=== PATIENT | male | born 1965 | race Hispanic/Latino ===

== ENCOUNTER → 2020-12-02 | Outpatient (CLI) | payer OTHER ==
[~2020-12-02] MED LIST: Z.0.MULTIVITAMINS1 E
== END ==
LOC: MRI 07:02
PROVIDERS: ATTEND Physician Assistant
DX: M25.561 Pain in right knee (principal)

== ENCOUNTER → 2021-01-10 | Day surgery (SDC) | payer OTHER ==
[2021-01-06 11:35] LABS: ANION GAP 10.8 mmol/L (8-16); BLOOD UREA NITROGEN 11 mg/dL (7-26); BUN/CREATININE RATIO 14 (6-25); CALCIUM 9.1 mg/dL (8.4-10.2); CARBON DIOXIDE 26 mmol/L (22-29); CHLORIDE 110 mmol/L (98-107); CREATININE, SERUM 0.79 mg/dL (0.72-1.25); EST GLOMERULAR FILTRATION RATE > 60 ML/MIN (60-); GLUCOSE 100 mg/dL (74-118); POTASSIUM 3.8 mmol/L (3.5-5.1); SODIUM 143 mmol/L (136-145)
[~2021-01-10] MED LIST changes: +ACETAMINOPHEN/CODEINE 300MG - 30MG TAB ONE; +CEFAZOLIN SOD 1 GM/NS 50ML 50 ML IV ONE; +DEXAMETHASONE SOD PHOS INJ 4 MG/ML VIAL ONE; +EPHEDRINE SULFATE INJ 50 MG/ML VIAL ONE; +FENTANYL CITRATE/PF 100MCG/2 ML INJ ONE; +LIDOCAINE HCL 2% JELLY 5 ML TUBE ONE; +LISINOPRIL-HCT1 EACH PO; +MIDAZOLAM HCL 2 MG/2 ML VIAL ONE; +OMEPRAZOLE20 M1 PO; +ONDANSETRON HCL INJ 2MG/ML 2ML 2 MG/ML VIAL ONE; +POVIDONE IODINE 0.05% 0.05 % ML PO ONE; +PROPOFOL IV EMULSION 10 MG/ML 20 ML VIAL ONE; +SEVOFLURANE INHAL SOLN 250 ML PEN BTL ONE
[2021-01-10 08:35] VITALS: BP 133/86
== END | disposition home or self-care (01) ==
LOC: OR 06:31
PROVIDERS: ATTEND Specialist
DX: S83.231A Complex tear of medial meniscus, current injury, right knee, initial encounter (principal); I10 Essential (primary) hypertension; K21.9 Gastro-esophageal reflux disease without esophagitis; G47.33 Obstructive sleep apnea (adult) (pediatric); Z01.810 Encounter for preprocedural cardiovascular examination; Z01.812 Encounter for preprocedural laboratory examination; Z20.822 Contact with and (suspected) exposure to COVID-19
CPT/HCPCS: 29881; 36415; 80048; 93005; J0690; J1100; J2001; J2405; J2704; U0002; J2250; J3010

== ENCOUNTER 2021-02-04 07:55 | Outpatient (RCR) | payer OTHER ==
[~2021-02-04 07:55] MED LIST changes: -ACETAMINOPHEN/CODEINE 300MG - 30MG TAB ONE; -CEFAZOLIN SOD 1 GM/NS 50ML 50 ML IV ONE; -DEXAMETHASONE SOD PHOS INJ 4 MG/ML VIAL ONE; -EPHEDRINE SULFATE INJ 50 MG/ML VIAL ONE; -FENTANYL CITRATE/PF 100MCG/2 ML INJ ONE; -LIDOCAINE HCL 2% JELLY 5 ML TUBE ONE; -MIDAZOLAM HCL 2 MG/2 ML VIAL ONE; -ONDANSETRON HCL INJ 2MG/ML 2ML 2 MG/ML VIAL ONE; -POVIDONE IODINE 0.05% 0.05 % ML PO ONE; -PROPOFOL IV EMULSION 10 MG/ML 20 ML VIAL ONE; -SEVOFLURANE INHAL SOLN 250 ML PEN BTL ONE
== END 2021-02-23 ==
LOC: PT 07:55
PROVIDERS: ATTEND Specialist
DX: S83.231D Complex tear of medial meniscus, current injury, right knee, subsequent encounter (principal); Z47.89 Encounter for other orthopedic aftercare

== ENCOUNTER 2022-01-07 21:02 | Emergency (ER) | payer OTHER ==
[~2022-01-07] VITALS: Ht 170.2 cm; Wt 93.0 kg
[2022-01-07] MEDS ORDERED: SODIUM CHLORIDE 0.9% 1000ML 1,000 ML IV STA (21:16)
[2022-01-07 21:58] LABS: BASOPHILS % 0.3 % (0.0-1.0); EOSINOPHILS # (AUTO) 0.1 (0.0-0.4); EOSINOPHILS % 0.7 % (0.0-6.0); HEMATOCRIT 33.2 % (38.2-49.6); HEMOGLOBIN 11.2 g/dL (14.0-18.0); LYMPHOCYTES # (AUTO) 2.7 (1.0-3.2); LYMPHOCYTES % 27.5 % (18.0-39.1); MEAN CORPUSCULAR HEMOGLOBIN 30.1 pg (28-32); MEAN CORPUSCULAR HGB CONC 33.7 g/dL (31-35); MEAN CORPUSCULAR VOLUME 89.2 fL (81-99); MONOCYTES # (AUTO) 1.1 (0.2-0.8); MONOCYTES % 10.8 % (4.4-11.3); NEUTROPHILS # (AUTO) 5.9 (2.1-6.9); NEUTROPHILS % 60.3 % (38.7-80.0); PLATELET COUNT 241 x10e3/uL (140-360); RED BLOOD COUNT 3.72 x10e6/uL (4.3-5.7); RED CELL DISTRIBUTION WIDTH 12.8 % (11.7-14.4)
[2022-01-07 22:22] LABS: ALBUMIN/GLOBULIN RATIO 1.6 (0.8-2.0); ANION GAP 10.5 mmol/L (8-16); CALCIUM 8.5 mg/dL (8.4-10.2); CREATININE, SERUM 0.8 mg/dL (0.72-1.25); POTASSIUM 3.5 mmol/L (3.5-5.1)
[2022-01-07] MEDS ORDERED: SODIUM CHLORIDE 0.9% 100 ML ONE (23:11)
[2022-01-07] MEDS ORDERED: IOPAMIDOL 370 MG/ML 100 ML INFUS..BTL INJ ONE (23:11)
[2022-01-08] MEDS ORDERED: OMEPRAZOLE40 MG PO (00:08)
[2022-01-08 00:39] VITALS: BP 114/82
== END 2022-01-08 00:37 | disposition home or self-care (01) ==
LOC: ER 21:11
DX: R10.84 Generalized abdominal pain (principal); K92.1 Melena; R19.7 Diarrhea, unspecified; I10 Essential (primary) hypertension
CPT/HCPCS: 36415; 74174; 80053; 83690; 85025; 99284; C9113; J7030; J7050; Q9967

== ENCOUNTER 2024-03-16 11:01 | Emergency (ER) | payer OTHER ==
[~2024-03-16] VITALS: Ht 170.2 cm; Wt 121.1 kg
[~2024-03-16 11:01] MED LIST changes: +OMEPRAZOLE40 MG PO
[2024-03-16 11:23] VITALS: TEMP 98
[2024-03-16] MEDS: SODIUM CHLORIDE 0.9% 1000ML 1,000 ML IV STA (11:51)
[2024-03-16] MEDS: ONDANSETRON HCL INJ 2MG/ML 2ML 2 MG/ML VIAL IV STA (11:51)
[2024-03-16] MEDS: FAMOTIDINE 20 MG/2 ML VIAL IV STA (11:51)
[2024-03-16 11:53] LABS: BASOPHILS # (AUTO) 0.1 (0.0-0.1); BASOPHILS % 0.6 % (0.0-1.0); EOSINOPHILS % 0.3 % (0.0-6.0); HEMATOCRIT 41.9 % (38.2-49.6); HEMOGLOBIN 14.4 g/dL (14.0-18.0); LYMPHOCYTES # (AUTO) 1.6 (1.0-3.2); LYMPHOCYTES % 15.3 % (18.0-39.1); MEAN CORPUSCULAR HEMOGLOBIN 29.2 pg (28-32); MEAN CORPUSCULAR HGB CONC 34.4 g/dL (31-35); MONOCYTES # (AUTO) 0.7 (0.2-0.8); MONOCYTES % 6.2 % (4.4-11.3); NEUTROPHILS # (AUTO) 8.1 (2.1-6.9); PLATELET COUNT 226 x10e3/uL (140-360); RED BLOOD COUNT 4.93 x10e6/uL (4.3-5.7); RED CELL DISTRIBUTION WIDTH 12.5 % (11.7-14.4); WHITE BLOOD COUNT 10.49 x10e3/uL (4.8-10.8)
[2024-03-16 12:05] LABS: INR 0.98; PARTIAL THROMBOPLASTIN TIME 27.8 seconds (23.8-35.5); PROTHROMBIN TIME 13.7 seconds (11.9-14.5)
[2024-03-16 12:13] LABS: INFLUENZAE A&B ANTIGEN (RAPID) NEGATIVE (NEGATIVE); RESPIRATORY SYNC. VIRUS NEGATIVE (NEGATIVE)
[2024-03-16 12:15] LABS: ALANINE AMINOTRANSFERASE 71 IU/L (0-55); ALBUMIN 4.3 g/dL (3.5-5.0); ALBUMIN/GLOBULIN RATIO 1.4 (0.8-2.0); ALKALINE PHOSPHATASE 62 IU/L (40-150); ANION GAP 20.8 mmol/L (8-16); BILIRUBIN,TOTAL 0.6 mg/dL (0.2-1.2); BLOOD UREA NITROGEN 12 mg/dL (7-26); BUN/CREATININE RATIO 16 (6-25); CALCIUM 9.4 mg/dL (8.4-10.2); CARBON DIOXIDE 17 mmol/L (22-29); CHLORIDE 108 mmol/L (98-107); CREATINE KINASE 101 IU/L (30-200); CREATININE, SERUM 0.75 mg/dL (0.72-1.25); EST GLOMERULAR FILTRATION RATE 106 ML/MIN (>=60); GLUCOSE 113 mg/dL (74-118); MAGNESIUM 1.9 MG/DL (1.3-2.1); POTASSIUM 3.8 mmol/L (3.5-5.1); SODIUM 142 mmol/L (136-145); TOTAL PROTEIN 7.4 g/dL (6.5-8.1)
[2024-03-16 12:25] LABS: TROPONIN I < 0.001 ng/mL (0-0.300)
[2024-03-16] MEDS: DIPHENHYDRAMINE HCL INJ 50 MG/ML VIAL IV ONE (12:32)
[2024-03-16] MEDS ORDERED: MECLIZINE HCL 12.5 MG TAB ONE (12:33)
[2024-03-16] MEDS ORDERED: PROMETHAZINE 12.5MG/ NACL 0.9% 50 ML ONE (12:34)
[2024-03-16] MEDS: PROMETHAZINE 12.5MG/ NACL 0.9% 12.5 MG/50 ML BAG IV ONE (12:34)
[2024-03-16] MEDS: MECLIZINE HCL 12.5 MG TAB PO ONE (13:04)
[2024-03-16 13:06] VITALS: PULSE 72; RESP 18
[2024-03-16] MEDS ORDERED: ONDANSETRON ODT4 MG PO (13:42)
[2024-03-16] MEDS ORDERED: MECLIZINE HCL12.5 MG PO (13:42)
[2024-03-16 14:14] VITALS: BP 151/95; PULSE 73; RESP 16; O2SAT 97
== END 2024-03-16 14:15 | disposition home or self-care (01) ==
LOC: ER 11:09
DX: R06.02 Shortness of breath (principal); H81.10 Benign paroxysmal vertigo, unspecified ear; R11.2 Nausea with vomiting, unspecified; I10 Essential (primary) hypertension; Z11.52 Encounter for screening for COVID-19; R94.31 Abnormal electrocardiogram [ECG] [EKG]
CPT/HCPCS: 36415; 70450; 71045; 80053; 82550; 83735; 83880; 84484; 85025; 85610; 85730; 87400; 87420; 93005; 99284; J1200; J2405; J2550; J7030; J8597; U0002